=== PATIENT | female | born 1935 | race Caucasian/White ===

== ENCOUNTER 2016-05-08 11:26 | Outpatient (RCR) | payer MEDICARE, OTHER ==
[~2016-05-08 11:26] MED LIST: ALBU17AE23 IH; ATOR40TA PO; ATR20T PO; ATRV10T PO; CEPH500C PO; CHOL5000 PO; CLN.1TRX PO; CLON0.1T14 PO; CLON0.5T3 PO; CODE-54 PO; DIPH25TA82 PO; EPIN0.3P3; EPIN0.3P3 IM; LAMO100T65 PO; LAMO150T PO; LORA10TA7 PO; LORA1TAB PO; METH4TAB PO; METO-272 PO; NFNEB10T PO; POLY15DR14 OU; PRD20T PO; SULF1TAB38 PO; [UNRECOGNIZED DRUG - CODE] TD
== END 2016-05-20 13:27 | disposition home or self-care (01) ==
LOC: CR 11:26
PROVIDERS: ATTEND Nuclear Medicine Nuclear Cardiology
DX: Z48.812 Encounter for surgical aftercare following surgery on the circulatory system (principal); Z95.5 Presence of coronary angioplasty implant and graft
CPT/HCPCS: 93798

== ENCOUNTER 2018-11-04 20:34 | Emergency (ER) | payer MEDICARE, OTHER ==
[~2018-11-04] VITALS: Ht 157.5 cm; Wt 64.4 kg
[~2018-11-04 20:34] MED LIST changes: +CLON0.5T13 PO; -CLON0.5T3 PO; -LAMO150T PO; +LAMO150T2 PO; -METO-272 PO; +METO-370 PO; +ONDANSETRON 4 MG/2 ML (SDV) Z0FRAN ONE
[2018-11-04] MEDS ORDERED: EPINEPHrine 0.1 MG/ML 10 ML (HOSPIRA) SYR IJ ONE (20:36)
[2018-11-04 20:43] LABS: BASOPHILS % (AUTO) 0 % (0-10); EOSINOPHILS # (AUTO) 0.2 10^3/uL (0.0-0.3); EOSINOPHILS % (AUTO) 2 % (0-10); HEMATOCRIT 35 % (35-52); HEMOGLOBIN 11.2 G/DL (11.5-16.0); LYMPHOCYTES # (AUTO) 3.4 X 10^3 (1.0-4.0); LYMPHOCYTES % (AUTO) 40 % (12-44); MEAN CORPUSCULAR HEMOGLOBIN 34 PG (25-34); MEAN CORPUSCULAR HGB CONC 32 G/DL (32-36); MEAN CORPUSCULAR VOLUME 105 FL (80-99); MONOCYTES # (AUTO) 0.8 X 10^3 (0.0-1.0); MONOCYTES % (AUTO) 9 % (0-12); NEUTROPHILS # (AUTO) 4.2 X 10^3 (1.8-7.8); NEUTROPHILS % (AUTO) 49 % (42-75); PLATELET COUNT 275 10^3/uL (130-400); RED CELL DISTRIBUTION WIDTH 13.1 % (10.0-14.5); WHITE BLOOD COUNT 8.7 10^3/uL (4.3-11.0)
[2018-11-04] MEDS ORDERED: ASPIRIN 81 MG CHEW (CHILDREN'S ASA) PO ONE (20:45)
[2018-11-04 20:53] VITALS: BP 0/0
[2018-11-04 20:56] LABS: INR 1.1 (0.8-1.4); PROTHROMBIN TIME PATIENT 14.4 SEC (12.2-14.7)
--- NOTE | 2018-11-04 21:00 | NUR ---
pt's family in to see pt. no questions at this time.
[2018-11-04 21:03] LABS: ALANINE AMINOTRANSFERASE 16 U/L (0-55); ALBUMIN 3.7 GM/DL (3.2-4.5); ALKALINE PHOSPHATASE 78 U/L (40-136); BILIRUBIN,TOTAL 0.7 MG/DL (0.1-1.0); BUN/CREATININE RATIO 10; CALCIUM 8.9 MG/DL (8.5-10.1); CARBON DIOXIDE 20 MMOL/L (21-32); CHLORIDE 106 MMOL/L (98-107); CREATININE SERUM 1.05 MG/DL (0.60-1.30); GFR ESTIMATED 50; GLUCOSE 167 MG/DL (70-105); MAGNESIUM 2.3 MG/DL (1.8-2.4); POTASSIUM 4.5 MMOL/L (3.6-5.0); SODIUM 139 MMOL/L (135-145)
--- NOTE | 2018-11-04 21:03 | NUR ---
pt's family left without signing release of body form.
--- NOTE | 2018-11-04 21:06 | ED Chest Pain ---
General Chief Complaint: Chest Pain Stated Complaint: STEMI Nursing Triage Note: BROUGHT IN BY [facility] FOR CHEST PAIN/STEMI Nursing Sepsis Screen: No Definite Risk Source: patient, EMS Exam Limitations: clinical condition History of Present Illness Date Seen by Provider: Nov 04, 2018 Time Seen by Provider: 20:36 Initial Comments Patient presented to ER by EMS from home which he complained that she had a single episode stop breathing for about 5 minutes witnessed by family was sweaty cold pale and in complaining of severe chest pain in the middle of her chest. EMS arrives that she had some ST changes in her inferior leads and brought her in hot. She was given a couple bags of fluids through 2 antecubital IVs because her blood pressure was undetectable. Faint thready femoral pulse. Patient was ab le to answer with her name but not able to give any meaningful history other than her chest hurt. She had not received aspirin because she was complaining of nausea and vomiting as well as no pain meds because of her low blood pressure. Allergies and Home Medications Allergies Uncoded Allergies: Hazelnuts (Allergy, Severe, 08/28/08) Home Medications Atorvastatin Calcium 40 Mg Tablet, 40 MG PO DAILY, (Reported) Cholecalciferol (Vitamin D3) 5,000 Unit Capsule, 5,000 UNIT PO 1200, (Reported) Clonazepam 0.5 Mg Tablet, 0.25 MG PO DAILY PRN for ANXIETY, (Reported) TAKES 1/2 (0.5MG) TABLET Clonidine HCl 0.1 Mg Tablet, 0.1 MG PO BID PRN for HIGH BLOOD PRESSURE, (Reported) Diphenhydramine Hcl 25 Mg Tablet, 25 MG PO HS PRN for ALLERGIES/SLEEP, (Reported) Epinephrine 0.3 Mg/0.3 Ml Auto.injct, UD PRN for ALLERGIC REACTION, (Reported) Lamotrigine 150 Mg Tablet, 150 MG PO BID, (Reported) Loratadine 10 Mg Tablet, 10 MG PO DAILY, (Reported) Metoprolol Succinate 50 Mg Tab.er.24h, 50 MG PO DAILY, (Reported) Polyvinyl Alcohol/Povidone 15 Ml Drops, 1-2 DROPS OU QID PRN for DRY EYES, (Reported) Patient Home Medication List Home Medication List Reviewed: Yes Review of Systems Review of Systems Constitutional: see HPI (unable to obtain a meaningful review of systems as the patient is nonresponsive.) Past [address] Hx Patient Social History Alcohol Use: Denies Use Recreational Drug Use: No Smoking Status: Unknown if Ever Smoked Recent Foreign Travel: No Contact w/Someone Who Travel: No Recent Infectious Disease Expo: No Recent Hopitalizations: No Immunizations Up To Date Tetanus Booster (TDap): Unknown Date of Pneumonia Vaccine: Mar 10, 2008 Date of Influenza Vaccine: Feb 10, 2013 Seasonal Allergies Seasonal Allergies: Yes Past Medical History Surgeries: Yes Eye Surgery, Hysterectomy, Oophorectomy, Orthopedic, Rectal Respiratory: No Cardiac: Yes (VARICOSE VEIN SURGERY) High Cholesterol, Hypertension 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 0.0oz. 64.761455pm; 26.0 BMI Method:Stated General Appearance: Chronically ill, Severe Distress HEENT: No Moist Mucous Membranes; Pale Conjunctivae (L), Pale Conjunctivae (R) Neck: Full Range of Motion, Normal Inspection Respiratory: Chest Non Tender, Lungs Clear, Normal Breath Sounds, Accessory Muscle Use (mild to moderate) Cardiovascular: Regular Rate, Rhythm, No Edema; No Normal Peripheral Pulses; Other (femoral and carotid pulse palpable, thready no radial or dorsal pedal pulses palpable. Perioral cyanosis, pale and diaphoretic) Gastrointestinal: Non Tender, Soft Extremity: Non Tender, No Pedal Edema, Slow Capillary Refill Neurologic/Psychiatric: Alert, Disoriented (and oriented to self only) Skin: Cyanosis, Damp, Diaphoresis, Mottled (extremities) Critical Care Note Critical Care Start Time: 20:36 Stop Time: 20:53 Total Time (minutes) 17 minutes Date of : Nov 04, 2018 Time of : 20:53 Progress The patient was cool, diaphoretic and cyanotic when she arrived with barely palpable central pulses. We put her in Trendelenburg obtained a blood pressure that was very low with a map around 65. She had 2 good antecubital IV sites that we put on a pressure bag with 2 L of saline. An EKG was obtained showing possible ST elevation in her inferior leads but there is also a bundle-branch blocks. 8 mg Zofran were given. The patient endorsed central sternal pain. The Hose Seamer was already on site and had been summonsed when EMS called and Dr. Nieto showed up shortly afterwards. Respiratory therapy began assisting ventilation with Ambu bag and we put the patient in Trendelenburg. A Cooper catheter was established and we discussed with the granddaughter and son that the patient wishes to be a DO NOT RESUSCITATE. As we brought ultrasound to the bedside to initiate a central line the patient lost pulse and CPR was initiated. Epinephrine was given and one cycle of CPR was done. That's when we ascertained from family that the patient was a DO NOT RESUSCITATE and they agreed to disco ntinue resuscitative efforts. After one cycle of CPR we discontinued efforts and using a Doppler ultrasound as well as stethoscope we could not find a heart rate. The patient was in pulseless electrical rhythm around 50 bpm. Agonal breathing that was not adequately ventilating. There is no pupillary reflex, heart tones, Doppler pulse or carotid pulse palpable so the patient was declared at 2052. Progress/Results/Core Measures Results/Orders Lab Results Laboratory Tests Test 11/04/18 20:37 Range/Units White Blood Count 8.7 4.3-11.0 10^3/uL Red Blood Count 3.32 L 4.35-5.85 10^6/uL Hemoglobin 11.2 L 11.5-16.0 G/DL Hematocrit 35 35-52 % Mean Corpuscular Volume 105 H 80-99 FL Mean Corpuscular Hemoglobin 34 25-34 PG Mean Corpuscular Hemoglobin Concent 32 32-36 G/DL Red Cell Distribution Width 13.1 10.0-14.5 % Platelet Count 275 130-400 10^3/uL Mean Platelet Volume 10.0 7.4-10.4 FL Neutrophils (%) (Auto) 49 42-75 % Lymphocytes (%) (Auto) 40 12-44 % Monocytes (%) (Auto) 9 0-12 % Eosinophils (%) (Auto) 2 0-10 % Basophils (%) (Auto) 0 0-10 % Neutrophils # (Auto) 4.2 1.8-7.8 X 10^3 Lymphocytes # (Auto) 3.4 1.0-4.0 X 10^3 Monocytes # (Auto) 0.8 0.0-1.0 X 10^3 Eosinophils # (Auto) 0.2 0.0-0.3 10^3/uL Basophils # (Auto) 0.0 0.0-0.1 10^3/uL Prothrombin Time 14.4 12.2-14.7 SEC INR Comment 1.1 0.8-1.4 Activated Partial Thromboplast Time 33 24-35 SEC Sodium Level 139 135-145 MMOL/L Potassium Level 4.5 3.6-5.0 MMOL/L Chloride Level 106 98-107 MMOL/L Carbon Dioxide Level 20 L 21-32 MMOL/L Anion Gap 13 5-14 MMOL/L Blood Urea Nitrogen 11 7-18 MG/DL Creatinine 1.05 0.60-1.30 MG/DL Estimat Glomerular Filtration Rate 50 BUN/Creatinine Ratio 10 Glucose Level 167 H 70-105 MG/DL Calcium Level 8.9 8.5-10.1 MG/DL Corrected Calcium 9.1 8.5-10.1 MG/DL Magnesium Level 2.3 1.8-2.4 MG/DL Total Bilirubin 0.7 0.1-1.0 MG/DL Aspartate Amino Transf (AST/SGOT) 15 5-34 U/L Alanine Aminotransferase (ALT/SGPT) 16 0-55 U/L Alkaline Phosphatase 78 40-136 U/L Myoglobin 40.4 10.0-92.0 NG/ML Troponin I < 0.028 <0.028 NG/ML Total Protein 6.0 L 6.4-8.2 GM/DL Albumin 3.7 3.2-4.5 GM/DL My Orders Orders - SASHA VERMA Ondansetron Injection (Zofran Injectio (11/04/18 20:33) Medications Given in ED Current Medications Medications Dose Ordered Sig/Binu Route Start Time Stop Time Status Last Admin Dose Admin Ondansetron HCl 4 mg STK-MED ONCE .ROUTE 11/04/18 20:33 11/04/18 20:38 DC 11/04/18 20:39 8 MG Vital Signs/I&O 11/04/18 11/04/18 11/04/18 11/04/18 20:36 20:36 20:36 20:53 Temp 97.0 Pulse 76 0 Resp 33 0 B/P (MAP) 79/68 (72) 0/0 (0) Pulse Ox 97 97 0 O2 Delivery Non Rebreather Non Rebreather Non Rebreather O2 Flow Rate 15.00 15.0 15.0 Blood Pressure Mean: 72 Progress Progress Note : Time: 22:26 Departure Impression Primary Impression: Acute myocardial infarction Qualified Codes: I21.3 - ST elevation (STEMI) myocardial infarction of unspecified site Additional Impression: due to cardiac arrest Disposition: 20 Condition: Departure-Patient Inst. Decision time for Depature: 20:53 Referrals: KAROL KIRK DO (PCP/Family) Primary Care Physician Copy Copies To 1: KAROL KIRK TITUS J Nov 04, 2018 21:06
--- NOTE | 2018-11-04 21:14 | NUR ---
[facility] contacted.
--- NOTE | 2018-11-04 21:20 | NUR ---
[facility] contacted. pt not a canidate for donation. reference number [id number]
--- OUTSIDE RECORDS SUMMARY | 2018-11-05 06:41 | XMS REPORT | Encounter Summary ---
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 Manager Name Role Phone Mack Daniel MD PCP Reason for Visit * Reason Comments Coronary Artery Disease Hypertension Encounter Details Date Type Department Care Team Description 08/21/2018 Office Visit [facility] Elaina Easley FNP Coronary artery disease Cardiovascular [address] involving [place] [facility] [address] artery of [place] heart [address] [place] [address] without angina pectoris [address] (Primary Dx); [place] [address] Essential hypertension; [phone] Mixed hyperlipidemia Social History Tobacco Use Types Packs/Day Years Used Date Never Smoker Smokeless Tobacco: Never Used Alcohol Use Drinks/Week oz/Week Comments Yes 1 Cans of 0.6 beer Sex Assigned at Date Recorded Not on file as of this encounter Last Filed Vital Signs Vital Sign Reading Time Taken Blood Pressure 140/78 08/21/2018 12:45 PM CDT Pulse 64 08/21/2018 12:45 PM CDT Temperature - - Respiratory Rate - - Oxygen Saturation - - Inhaled Oxygen - - Concentration Weight 68.1 kg (150 lb 3.2 oz) 08/21/2018 12:45 PM CDT Height 157.5 cm (5' 2") 08/21/2018 12:45 PM CDT Body Mass Index 27.47 08/21/2018 12:45 PM CDT in this encounter Instructions * Patient Instructions - Elaina Easley FNP - 08/21/2018 1:00 PM CDT Continue present medications. Please ensure that your medications at home match the medication list provided t o you today, with regard to the strength of the medication and the correct dosin g. Sometimes bottles of medication do not have the most up to date dosing instr uctions on them because of changes made by your provider. Please follow the ins tructions on today's medication list for your cardiac medications. Please contact the nurse line at the office with any concerns. [phone]. T he nurses will assist you and if needed, relay messages to your provider about y our concerns. in this encounter Progress Notes * Elaina Easley FNP - 08/21/2018 1:00 PM CDT Formatting of this note may be different from the original. [facility] Appointment Date: 08/21/2018 Mack Daniel MD [address] [facility] [id number] RE: Antonette Lilly : 1935 Visit provider: JOANNE Sanchez Dear Mack Daniel MD: I had the pleasure of seeing Antonette Lilly in the office today. She is a(n) 83 -year-old female and presents with the following chief complaint(s): Coronary a rtery disease and hypertension. HPI: Ms. Lilly comes to the office in 6-month cardiovascular follow-up. She has a history of an anterior non-STEMI in February 2016. A high-grade mid LAD lesion w as treated with a drug-eluting stent. She has no other significant disease. He r ejection fraction on an echo in June 2017 was 65%. In the past, her blood pressure was well modified on Bystolic and amlodipine. S he changed prescription drug plans and Bystolic was no longer covered. You go sitioned her to carvedilol and discontinued amlodipine. Her blood pressure has been well modified on that regimen. She tells me that while her blood pressure is a bit up today, the systolic reading is normally under 130. She denies chest pain, shortness of breath on exertion, dizziness, lightheadedness, palpitations, PND, or orthopnea. She remains on aspirin and a statin. 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) PARTIAL EPILEPSY WITH IMPAIRMENT OF CONSCIOUSNESS Coronary artery disease involving [place] coronary artery of [place] heart COR ONARY ARTERIOSCLEROSIS IN [place] ART[place] Essential hypertension ESSENTIAL HYPERTENSION Mixed hyperlipidemia MIXED HYPERLIPIDEMIA History of CVA (cerebrovascular accident) HISTORY OF CEREBROVASCULAR ACCIDEN T Carotid artery disease ([facility]) DISORDER OF CAROTID ARTERY S/P coronary artery stent placement HISTORY OF PLACEMENT OF STENT FOR MOYA RY ARTERY DISEASE History of non-ST elevation myocardial infarction (NSTEMI) HISTORY OF NON-ST -SEGMENT ELEVATION MYOCARDIAL INFARCTION Seizures ([facility]) SEIZURE Leg weakness, bilateral PARAPARESIS Weakness of both lower extremities PARAPARESIS Past Medical History: Diagnosis Date Anaphylaxis Hazelnuts Anxiety BPPV (benign paroxysmal positional vertigo) 2011 Carotid artery disease ([facility]) Cataract Coronary artery disease involving [place] coronary artery of [place] heart CVA (cerebral vascular accident) ([facility]) 11/2013 DDD (degenerative disc disease), lumbar Depression Essential hypertension Heart murmur Hernia Leg weakness, bilateral 01/21/2018 Lumbar spondylosis Mixed hyperlipidemia NSTEMI (non-ST elevated myocardial infarction) ([facility]) 02/26/2016 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 Normal LM, 95% mid LAD, norm al LCX and dominant RCA. EYE SURGERY HERNIA REPAIR LAPAROSCOPY, DIAGNOSTIC 11/14/2010 Lysis of adhesions, BSO, pelvic washings TUBAL LIGATION 1979 VAGINAL HYSTERECTOMY 1982 VARICOSE VEIN SURGERY Final Medications: Current Outpatient Prescriptions Medication Sig Dispense Refill aspirin 81 MG EC tablet Take 1 tablet (81 mg total) by mouth daily. 30 table t 12 atorvastatin (LIPITOR) 80 MG tablet Take 1 tablet (80 mg total) by mouth jacob ly. 90 tablet 3 carvedilol (COREG) 25 MG tablet Take 25 mg by mouth 2 (two) times a day. clonazePAM (KLONOPIN) 0.5 MG tablet as needed. cyanocobalamin (VITAMIN B-12) 500 MCG tablet Take 500 mcg by mouth daily. At noon daily lamoTRIgine (LAMICTAL) 150 MG tablet Take 1 tablet (150 mg total) by mouth 2 (two) times a day. 180 tablet 3 loratadine (CLARITIN) 10 mg tablet Take 10 mg by mouth daily. nitroglycerin (NITROSTAT) 0.4 MG SL tablet Dissolve 1 tablet (0.4 mg total) under the tongue every 5 (five) minutes as needed for chest pain. May repeat for a total of 3 doses. 25 tablet 12 No current facility-administered medications for this visit. Allergies Allergen Reactions Hazelnut Anaphylaxis Wasp Venom Anaphylaxis Family History Problem Relation Age of Onset Coronary artery disease Brother Coronary artery disease Brother Heart failure Father CHF Dementia Mother Coronary artery disease Mother Alzheimer's disease Mother Coronary artery disease Sister Diabetes Sister 63 Obesity Sister Social History: Social History Substance Use Topics Smoking status: Never Smoker Smokeless tobacco: Never Used Alcohol use 0.6 oz/week 1 can of beer per week Review of Systems Constitution: Positive for malaise/fatigue. Negative for fever and night sweats. HENT: Negative for nosebleeds. Cardiovascular: Negative for chest pain, claudication, cyanosis, dyspnea on exer tion, irregular heartbeat, leg swelling, near-syncope, orthopnea, palpitations, paroxysmal nocturnal dyspnea and syncope. Respiratory: Negative for cough, hemoptysis, shortness of breath, sleep disturba nces due to breathing, snoring and wheezing. Endocrine: Negative for cold intolerance and polydipsia. Skin: Negative for rash. Musculoskeletal: Negative for joint pain and myalgias. Gastrointestinal: Negative for dysphagia, hematochezia, nausea and vomiting. Genitourinary: Negative for hematuria. Neurological: Positive for disturbances in coordination and excessive daytime sl eepiness. Negative for brief paralysis, dizziness, focal weakness, light-headedn ess, loss of balance and numbness. Psychiatric/Behavioral: Negative for depression. All other systems reviewed and are negative. Vital Signs 08/21/18 1245 BP: (!) 140/78 Pulse: 64 Weight: 68.1 kg (150 lb 3.2 oz) Height: 1.575 m (5' 2") BMI: Body mass index is 27.47 kg/m. Physical Exam Constitutional: She is oriented to person, place, and time. She appears well-dev eloped and well-nourished. Overweight by BMI. HENT: Head: Normocephalic. Eyes: Conjunctivae are normal. Neck: Neck supple. No JVD present. Cardiovascular: Normal rate, regular rhythm, S1 normal, S2 normal, normal heart sounds, intact distal pulses and normal pulses. No murmur heard. Pulses: Dorsalis pedis pulses are 2+ on the right side, and 2+ on the left side. No peripheral edema. Pulmonary/Chest: Effort normal and breath sounds normal. Abdominal: Soft. There is no tenderness. Musculoskeletal: Normal range of motion. She exhibits no edema. Neurological: She is alert and oriented to person, place, and time. Skin: Skin is warm, dry and intact. No rash noted. + LE varicosities. Psychiatric: She has a normal mood and affect. Her speech is normal and behavior is normal. Judgment and thought content normal. Cognition and memory are normal. Nursing note and vitals reviewed. Cholesterol (no units) Date Value 09/18/2017 155 07/21/2017 177 01/23/2017 197 HDL Cholesterol (mg/dL) Date Value 09/18/2017 44 07/21/2017 57 01/23/2017 50 Triglycerides (mg/dL) Date Value 09/18/2017 116 07/21/2017 72 01/23/2017 102 LDL Cholesterol Date/Time Value Ref Range Status 09/18/2017 88 60 - 130 mg/dL Final 07/21/2017 106 130 mg/dL Final 01/23/2017 127 60 - 130 mg/dL Final Encounter Diagnoses Name Primary? Coronary artery disease involving [place] coronary artery of [place] heart wit hout angina pectoris Yes Essential hypertension Mixed hyperlipidemia Impression and Plan: 1. Coronary artery disease. She has no anginal symptoms. She will continue me dical therapy. She is status post drug-eluting stent to the mid LAD in the sett ing of an anterior non-STEMI in February 2016. LVEF is normal. 2. Hypertension. Although her blood pressure is elevated today, she tells me n ormally it is in acceptable range with a systolic no higher than 130. She will continue carvedilol as monotherapy. 3. Mixed hyperlipidemia. She continues her statin. She will be due for lipids later this spring. Her last LDL was 88. She is on high-intensity atorvastatin. Ms. Lilly is stable in terms of her cardiovascular status. No changes were ma de today. Dr. Deluca will see her in 6 months. Treatment goals, progress, and next steps, as above, were discussed and mutually agreed upon with the patient/family. Thank you for allowing me to participate in Antonette Lilly's care. If I can be of any further assistance, please do not hesitate to contact me. Sincerely, JOANNE Sanchez /dalila in this encounter Plan of Treatment Date Type Specialty Care Team Description 11/13/2018 Office Visit Neurology Aster Young APRN [address] [address] 02/17/2019 Office Visit Neurology Curry Cotto MD [address] [id number] as of this encounter Visit Diagnoses Diagnosis Coronary artery disease involving [place] coronary artery of [place] heart without angina pectoris - Primary Essential hypertension Unspecified essential hypertension Mixed hyperlipidemia
--- OUTSIDE RECORDS SUMMARY | 2018-11-05 06:41 | XMS REPORT | Clinical Summary ---
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 Disp. Refills Start End Date Status Date loratadine (CLARITIN) 10 Take 10 mg by mouth Active mg tablet daily. cyanocobalamin (VITAMIN Take 500 mcg by mouth Active B-12) 500 MCG tablet daily. At noon daily aspirin 81 MG EC Take 1 tablet (81 mg 30 tablet 12 02/28/20 Active tabletIndications: total) by mouth daily. 16 Myocardial Reinfarction Prevention, blood clot prevention following percutaneous coronary intervention nitroglycerin (NITROSTAT) Dissolve 1 tablet (0.4 mg 25 tablet 12 02/28/20 Active 0.4 MG SL total) under the tongue 16 tabletIndications: Angina every 5 (five) minutes as needed for chest pain. May repeat for a total of 3 doses. clonazePAM (KLONOPIN) 0.5 as needed. 11/26/19 Active MG tablet 17 atorvastatin (LIPITOR) 80 Take 1 tablet (80 mg 90 tablet 3 07/26/19 Active MG tablet total) by mouth daily. 18 lamoTRIgine (LAMICTAL) Take 1 tablet (150 mg 180 tablet 3 01/22/20 01/22/20 Active 150 MG tabletIndications: total) by mouth 2 (two) 18 19 Simple Partial Seizures times a day. carvedilol (COREG) 25 MG Take 25 mg by mouth 2 08/21/19 Active tablet (two) times a day. 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) 01/24/2016 Seizures (HCC) 05/19/2013 Overview: Right leg/focal motor seizures Essential hypertension Mixed hyperlipidemia History of CVA (cerebrovascular accident) Overview: small lacunar infarct in the left centrum semi-ovale identified on MRI 11/2013 Carotid artery disease (HCC) Resolved Problems Problem Noted Date Resolved Date Other and unspecified complications of medical care, not elsewhere 08/31/2014 03/17/2016 classified Leg numbness 11/18/2013 03/17/2016 Encounters Date Type Specialty Care Team Description 08/21/2018 Office Visit Cardiology Elaina Easley FNP Coronary artery disease involving seneca-cayuga coronary artery of seneca[place] heart without angina pectoris (Primary Dx); Essential hypertension; Mixed hyperlipidemia 08/19/2018 Abstract Cardiology Ni Medina, RN 08/17/2018 Documentation Cardiology Elaina Easley FNP from Last 3 Months Immunizations Name Dates Previously Given Next Due Influenza TIV (IM) 02/28/2016 Family History Medical History Relation Name Comments Coronary artery disease Brother Coronary artery disease Brother Heart failure Father CHF Alzheimer's disease Mother Coronary artery disease Mother Dementia Mother Coronary artery disease Sister Diabetes Sister Obesity Sister Relation Name Status Comments Brother Cause of was CAD at age 48. (Age 48) Brother Cause of was CAD at age 50. (Age 50) Father Cause of was CHF at age 70. (Age 70) Mother Cause of was heart problems, alzheimers at (Age 80) age 80. Sister Cause of was blocked arteries at age 50. (Age 50) Sister Cause of was unknown at age 63. (Age 63) Sister Social History Tobacco Use Types Packs/Day Years Used Date Never Smoker Smokeless Tobacco: Never Used Alcohol Use Drinks/Week oz/Week Comments Yes 1 Cans of 0.6 beer Sex Assigned at Date Recorded Not on file Last Filed Vital Signs Vital Sign Reading Time Taken Blood Pressure 140/78 08/21/2018 12:45 PM CDT Pulse 64 08/21/2018 12:45 PM CDT Temperature 36.8 C (98.2 F) 02/28/2016 4:05 PM CDT Respiratory Rate 19 02/28/2016 4:05 PM CDT Oxygen Saturation 96% 02/28/2016 4:05 PM CDT Inhaled Oxygen - - Concentration Weight 68.1 kg (150 lb 3.2 oz) 08/21/2018 12:45 PM CDT Height 157.5 cm (5' 2") 08/21/2018 12:45 PM CDT Body Mass Index 27.47 08/21/2018 12:45 PM CDT Plan of Treatment Date Type Specialty Care Team Description 11/13/2018 Office Visit Neurology Aster Young, [employer] [address] [address] [phone] 02/17/2019 Office Visit Neurology Curry Cotto MD [address] [address] [phone] Health Maintenance Due Date Last Done Comments Medicare Annual Wellness 1935 Td # 1935 Zoster Vaccine# (1 of 2) 07/25/1985 Depression Screening 07/25/2000 PHQ-9 # Osteoporosis Screening 07/25/2000 Pneumococcal Immunization 07/25/2000 65+ (1 of 2 - PCV13) Fall Risk Assessment # 02/27/2017 02/28/2016 Influenza Vaccine Completed 04/22/2018, 02/28/2016, 03/06/2005, Additional history exists Results Not on filefrom Last 3 Months
--- OUTSIDE RECORDS SUMMARY | 2018-11-05 06:42 | XMS REPORT | CCD ---
Author Author DARWIN BUSBY Organization Unknown Address [address] [facility] [address] [place], [place] [id number] Care Team Providers Care Liquid Compounder Name Role Phone HANDS EREVAN MD Attphys [facility], [place] [place] Prisurg Vital Signs Unknown or Not Available. Allergies Unknown or Not Available. Procedures Unknown or Not Available. History of Immunizations Unknown or Not Available. Problems Unknown or Not Available. Results Unknown or Not Available. Active Medications Unknown or Not Available. Medications Administered During Visit Unknown or Not Available. Encounters Encounter Diagnosis Diagnosis Code Start Date Other allergy, initial encounter [id number] 05/05/2015 Social History Smoking Status Code Start Date End Date Never smoker [id number] Patient Decision Aids Unknown or Not Available. Discharge Instructions You were admitted to [facility] on 05/05/2015 with a principal diagnosis of Other allergy, initial encounter. You were discharged from [facility] on 05/05/2015. Should you have any questions prior to discharge, please contact a member of your healthcare team. If you have left the hospital and have any questions, please contact your primary care physician. Chief Complaint and Reason For Visit Chief Complaint Date of Onset EYE PROBLEM Function Status Unknown or Not Available. Plan of Care Unknown or Not Available. Referral/Transition of Care Unknown or Not Available.
--- OUTSIDE RECORDS SUMMARY | 2018-11-05 06:42 | XMS REPORT ---
Discharge Summary 2.1 Created on: AURELIA TIM : 1935 Sex: Female Author Author ALLISON BRADEN Unknown Address [address] [facility] [address] [place], [place] [id number] Care Team Providers Care Hearth Feeder Name Role Phone MICHAEL Stevens DO Attending DANIEL VANN MD [facility] Functional Status No Data Found Immunization Immunization Date Status Additional Notes Code Code System Td (adult), 2 Lf tetanus toxoid, preservative free, adsorbed 08/12/2011 Completed 09 CVX influenza, split (incl. purified surface antigen) 03/16/2002 Completed 15 CVX influenza, split (incl. purified surface antigen) 02/24/2003 Completed 15 CVX influenza, split (incl. purified surface antigen) 03/01/2004 Completed 15 CVX influenza, split (incl. purified surface antigen) 03/06/2005 Completed 15 CVX Mental Status No Data Found Results UA ROUTINE C&S IF IND - Collect Date/Time: 04/04/2017 01:25 [place] ID: [id number] [address] [facility] [address], [place], [id number] [facility] ANESTHESIOLOGIST AND CRITICAL CARE [facility] HEALTH ID: [id number] [address] [facility] [address], [place], [id number] LOINC: Test Value Unit Reference Range Code Code System COLOR YELLOW NL: YELLOW APPEARANCE CLEAR NL: CLEAR SPEC GRAV <=1.005 NL: 1.002 - 1.022 pH 7.0 NL: 5 - 9 PROTEIN NEGATIVE NL: NEGATIVE mg/dl GLUCOSE NEGATIVE NL: NEGATIVE mg/dl KETONE NEGATIVE NL: NEGATIVE mg/dl BILIRUBIN NEGATIVE NL: NEGATIVE BLOOD NEGATIVE NL: NEGATIVE NITRITE NEGATIVE NL: NEGATIVE LEUK SCREEN SMALL NL: NEGATIVE MICRO INDICATED? SEE BELOW WBC/HPF 0-5 NL: NEGATIVE RBC/HPF RARE NL: NEGATIVE CASTS/LPF NEGATIVE NL: NEGATIVE CRYSTALS TRACE AMORPH NL: NEGATIVE MUCOUS THRDS NEGATIVE NL: NEGATIVE BACTERIA FEW NL: NEGATIVE EPITH CELLS FEW SQUAMOUS NL: NEGATIVE TRICHOMONAS NEGATIVE NL: NEGATIVE YEAST NEGATIVE NL: NEGATIVE CULT SET UP? YES TSH - Collect Date/Time: 04/04/2017 00:35 [facility] ID: [id number] [address] [facility] [address], [place], [place], [id number] [facility] ID: [id number] [address] [facility] [address], [place], [place], [id number] LOINC: Test Value Unit Reference Range Code Code System TSH 3.72 mIU/L L=0.35 H=4.94 21621-7 LOINC BNP - Collect Date/Time: 04/04/2017 00:35 [facility] ID: [id number] [address] [facility] [address], [place], [place], [id number] [facility] ID: [id number] [address] [facility] [address], [place], [place], [id number] LOINC: Test Value Unit Reference Range Code Code System BNP 170 PG/ML L=0 H=100 38044-7 LOINC PT/PTT - Collect Date/Time: 04/04/2017 00:35 [facility] ID: [id number] [address] [facility] [address], [place], [place], [id number] [facility] ID: [id number] [address] [facility] [address], [place], [place], [phone] LOINC: Test Value Unit Reference Range Code Code System PROTIME 10.7 SEC L=9.9 H=11.9 5964-2 LOINC INR 1.0 01216-3 LOINC PTT 28.5 SEC L=22.2 H=37.2 3173-2 LOINC TROPONIN-I ADV - Collect Date/Time: 04/04/2017 00:35 [facility] ID: [id number] [address] [facility] [address] [place], [place], [phone] [facility] ID: [id number] [address] [facility] [address], [place], [id number] LOINC: Test Value Unit Reference Range Code Code System TROPONIN-I AD < 0.04 ng/mL L=0.04 H=0.40 27833-6 [facility] COMPRE[facility]ENSIVE METABOLIC PANEL - Collect Date/Time: 04/04/2017 00:35 [facility] [employer]) ID: [id number] [address] [facility] [address], [place], [place], [id number] [employer] [employer] [facility] ID: [id number] [address] [facility] [address], [place], [id number] LOINC: Test Value Unit Reference Range Code Code System GLUCOSE 119 MG/DL L=70 H=100 2345-7 LOINC SODIUM 141 MEQ/L L=135 H=148 2951-2 LOINC POTASSIUM 3.8 MEQ/L L=3.5 H=5.3 2823-3 LOINC CHLORIDE 104 MEQ/L L=96 H=110 2075-0 LOINC CO2 28 MEQ/L L=22 H=29 2028-9 LOINC BUN 16 MG/DL L=8 H=22 3094-0 LOINC CREATININE 0.9 MG/DL L=0.6 H=1.6 2160-0 LOINC SGOT/AST 20 IU/L L=10 H=40 1920-8 LOINC SGPT/ALT 17 IU/L L=8 H=54 1742-6 LOINC ALK PHOS 88 IU/L L=35 H=115 6768-6 LOINC TOTAL PROTEIN 6.6 G/DL L=5.5 H=8.5 2885-2 LOINC ALBUMIN 3.8 G/DL L=3.1 H=5.4 1751-7 LOINC TOTAL BILI 0.5 MG/DL L=0.0 H=1.5 1975-2 LOINC CALCIUM 9.0 MG/DL L=8.2 H=10.6 01003-7 LOINC AGE 81 yrs GFR NonAA 60 GFR AA 73 eGFR 60 mL/min/1.7 eGFR AA* >60 CBC W/ AUTO DIFF (RFLX MAN DIFF IF IND) - Collect Date/Time: 04/04/2017 00:35 [place] [employer] ID: [id number] [address], [place], [place], [id number] [facility] ANESTHESIOLOGIST AND CRITICAL CARE [facility] ID: [id number] [address], [place], [place], [id number] LOINC: Test Value Unit Reference Range Code Code System WBC 9.2 TH/CMM L=4.5 H=10.8 89006-5 LOINC RBC 3.85 ML/CMM L=4.20 H=5.40 789-8 LOINC HGB 12.8 G/DL L=12.0 H=16.0 718-7 LOINC HCT 39.2 % L=37.0 H=47.0 4544-3 LOINC MCV 102 FL L=81 H=99 MCH 33.2 PG L=27.0 H=33.0 MCHC 32.7 G/DL L=31.0 H=36.0 RDW SD 45 FL L=36 H=50 RDW CV 12.1 % L=0.0 H=14.8 MPV 9.5 FL L=9.3 H=12.5 PLT 307 TH/CMM L=130 H=440 777-3 LOINC NRBC# 0.00 TH/CMM L=0.00 H=0.00 NRBC% 0.0 /100WBC L=0.0 H=2.0 %NEUT 70.1 % %LYMP 18.8 % %MONO 8.2 % %EOS 1.5 % %BASO 0.7 % #NEUT 6.42 TH/CMM L=2.10 H=8.20 #LYMP 1.72 TH/CMM L=0.90 H=5.20 #MONO 0.75 TH/CMM L=0.16 H=1.00 #EOS 0.14 TH/CMM L=0.00 H=0.80 #BASO 0.06 TH/CMM L=0.00 H=0.20 MANUAL DIFF NOT IND D DIMER QUANT - Collect Date/Time: 04/04/2017 00:35 [facility] ID: [id number] [address], [place], [place], [id number] [facility] ANESTHESIOLOGIST AND CRITICAL CARE [facility] ID: [id number] [address], [place], [place], [id number] LOINC: Test Value Unit Reference Range Code Code System D-DIMER QUANT 0.57 MG/L FEU L=0.00 H=0.50 91065-2 LOINC CX CHEST 1 VIEW - Completed: 04/04/2017 00:49 LOINC: EXAMINATION:CX CHEST 1 VIEWREASON FOR EXAM:Central chest Pain and tightness COMPARISON:None.FINDINGS:The cardiac silhouette is slightly enlarged.Calcified aortic atherosclerotic plaque.No consolidation, pleural effusion, or sizable pneumothorax.IMPRESSION:Slightly enlarged cardiac silhouette.Reviewed and Electronically Signed by: Marianne Sanford Date/Time: 04/04/2017 7:18 AMJob ID#: [id number] Social History Type Status Start Date End Date Code Code System Smoking History Never smoker (Never Smoked) [id number] SNOMED-CT Vital Signs No Data Found Assessment No Data Found Hospital Discharge Instructions Should you have any questions prior to discharge, please contact a member of your healthcare team. If you have left the hospital and have any questions, please contact your primary care physician. Reason For Referral No Data Found Hospital Course You were admitted to [facility] on 04/03/2017 23:42 with a principal diagnosis of Other chest pain You were discharged from [facility] on 04/04/2017 01:52 Medications No Data Found Procedures No Data Found Implants No Data Found Problems No Data Found Allergies No Data Found Plan of Treatment No Data Found Encounters No Data Found Goals No Data Found Discharge Medications No Data Found Discharge Diagnosis Discharge Diagnosis Diagnosis Code Start Date Other chest pain [id number] 04/03/2017 Health Concerns Section No Data Found
--- OUTSIDE RECORDS SUMMARY | 2018-11-05 06:42 | XMS REPORT | Encounter Summary ---
Author Author [facility] Address Unknown Phone Unavailable Care Team Providers Care Public Information Relations Manager Name Role Phone Mack Daniel MD PCP Encounter Details Date Type Department Care Team Description 08/17/2018 Documentation [facility] Elaina Easley FNP Cardiovascular [address] [facility] [address] [address] [facility] [place] [address] [address] [place] [address] [phone] Social History Tobacco Use Types Packs/Day Years Used Date Never Smoker Smokeless Tobacco: Never Used Alcohol Use Drinks/Week oz/Week Comments Yes 1 Cans of 0.6 beer Sex Assigned at Date Recorded Not on file as of this encounter Plan of Treatment Date Type Specialty Care Team Description 11/13/2018 Office Visit Neurology Aster Young APRN [address] [address] [phone] 02/17/2019 Office Visit Neurology Curry Cotto MD [address] [facility] [address] [place] [address] [phone] as of this encounter Visit Diagnoses Not on filein this encounter
--- OUTSIDE RECORDS SUMMARY | 2018-11-05 06:42 | XMS REPORT | Encounter Summary ---
Author Author [facility] Address Unknown Phone Unavailable Care Team Providers Care Ruby On Rails Software Developer Name Role Phone Mack Daniel MD PCP Encounter Details Date Type Department Care Team Description 08/19/2018 Abstract [facility] Ni Wilburn RNcloth doubling machine operator [facility] [address] [facility] [address] [place] [address] Social History Tobacco Use Types Packs/Day Years Used Date Never Smoker Smokeless Tobacco: Never Used Alcohol Use Drinks/Week oz/Week Comments Yes 1 Cans of 0.6 beer Sex Assigned at Date Recorded Not on file as of this encounter Plan of Treatment Date Type Specialty Care Team Description 11/13/2018 Office Visit Neurology Aster Young APRN [address] [address] [phone] 02/17/2019 Office Visit Neurology Curry Cotto MD [address] [address] [phone] as of this encounter Visit Diagnoses Not on filein this encounter
--- OUTSIDE RECORDS SUMMARY | 2018-11-05 06:44 | XMS REPORT | Continuity of Care Document ---
Author Organization Unknown Address Unknown Allergies Active Description Code Type Severity Reaction Onset Reported/Identified Relationship to Patient Clinical Status Yes OTHER OTHER SEVERE Yes NO KNOWN DRUG ALLERGIES UNKNOWN NO KNOWN DRUG ALLERG Yes NO KNOWN DRUG ALLERGIES UNKNOWN UNKNOWN Yes OTHER SEVERE SEVERE Yes OTHER SEVERE SWOLLEN LIPS Yes Hazelnuts Hazelnuts Severe N/A 08/28/2008 Medications Medication Packaging Start Date Stop Date Route Dosage Sig ENALAPRIL VIAL INJ 1.25 MG/CC (VASOTEC VIAL) MG 11/25/2016 11/25/2016 ONCE&1738 ENALAPRIL VIAL INJ 1.25 MG/CC (VASOTEC VIAL) MG 11/25/2016 11/25/2016 ONCE&1801 LISINOPRIL TAB 10 MG (ZESTRIL) MG 11/25/2016 11/25/2016 ONCE&1830 LORAZEPAM TAB 0.5 MG (ATIVAN) MG 11/25/2016 12/02/2016 PRN Q8H Problems Date Dx Coded Attending Type Code Diagnosis Diagnosed By 09/16/2010 Ot 787.3 FLATUL/ERUCTAT/GAS PAIN 09/16/2010 Ot 789.09 ABDOMINAL PAIN, OTHER SPECIFIED SITE 09/19/2010 Ot 562.10 DIVERTICULOSIS COLON (W/O MENT OF HEMORR 09/19/2010 Ot 625.8 FEM GENITAL SYMPTOMS NEC 09/19/2010 Ot 789.09 ABDOMINAL PAIN, OTHER SPECIFIED SITE 07/24/2012 Ot 401.9 HYPERTENSION NOS 07/24/2012 Ot 780.4 DIZZINESS AND GIDDINESS 2012 Ot 300.00 ANXIETY STATE NOS 2012 Ot 401.9 HYPERTENSION NOS 2012 Ot V58.69 OTH MED,LT,CURRENT USE 12/13/2012 SILVANO PEREZ MD Ot 401.9 HYPERTENSION NOS 12/13/2012 SILVANO PEREZ MD Ot 784.0 HEADACHE 12/20/2012 ANA NGUYEN, SILVANO Preciado Ot 401.9 HYPERTENSION NOS 12/20/2012 ANA NGUYEN, SILVANO Preciado Ot 681.00 CELLULITIS, FINGER NOS 12/20/2012 ANA NGUYEN, SILVANO Preciado Ot V58.69 OT MED,LT,CURRENT USE 03/10/2013 MIRELLA ORTEGA MD Ot 562.10 DIVERTICULOSIS COLON (W/O MENT OF HEMORR 03/10/2013 MIRELLA ORTEGA MD Ot 569.2 RECTAL ANAL STENOSIS 03/10/2013 MIRELLA ORTEGA MD Ot V76.51 SCREEN MAL NEOP-COLON 10/19/2013 CANDY WALKER DO Ot 989.5 TOXIC EFFECT VENOM 10/19/2013 CANDY WALKER DO Ot E905.3 HORNET/WASP/BEE STING 03/22/2014 YARELIS FLANAGAN MD Ot 401.9 HYPERTENSION NOS 03/22/2014 PANCHITO NGUYEN, YARELIS Wilson Ot 780.4 DIZZINESS AND GIDDINESS 03/22/2014 YARELIS FLANAGAN MD Ot V58.69 OT MED,LT,CURRENT USE 05/02/2014 KAROL KIRK DO S Ot 401.9 05/02/2014 KAROL KIRK DO S Ot 426.4 05/02/2014 VAIBHAV KIRK DOLINE S Ot 786.50 01/31/2016 KAROL KIRK DO S Ot 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 02/01/2016 VAIBHAV KIRK DOLINE S Ot 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 02/22/2016 CANDY WALKER DO Ot I10 ESSENTIAL (PRIMARY) HYPERTENSION 02/22/2016 CANDY WALKER DO Ot I44.0 ATRIOVENTRICULAR BLOCK, FIRST DEGREE 02/22/2016 CANDY WALKER DO Ot M79.602 PAIN IN LEFT ARM 02/22/2016 CANDY WALKER DO Ot Z79.899 OTHER HALF-WAY (CURRENT) DRUG THERAPY 02/22/2016 Ot 789.39 ABDOMINAL/PELVIC SWELLING,MASS/LUMP, OTH 02/22/2016 Ot 780.4 DIZZINESS AND GIDDINESS 02/22/2016 Ot 784.0 HEADACHE 02/22/2016 Ot 433.30 MULT BILTRAL ARTERY OCCLUSION WO CEREBRA 02/22/2016 MIRELLA ORTEGA MD Ot V72.84 EXAM PRE-OPERATIVE NOS 02/22/2016 KAROL KIRK DO Ot 368.9 VISUAL DISTURBANCE NOS 02/22/2016 KAROL KIRK DO Ot 785.2 CARDIAC MURMURS NEC 02/22/2016 DORON CHRISTINE POWDER LOADER Ot 401.9 HYPERTENSION NOS 02/22/2016 DORON CHRISTINE POWDER LOADER Ot 433.10 CAROTID ARTERY OCCLUSION W O CEREBRAL IN 02/22/2016 DORON CHRISTINE POWDER LOADER Ot 433.30 MULT BILTRAL ARTERY OCCLUSION WO CEREBRA 02/22/2016 DORON CHRISTINE POWDER LOADER Ot 785.9 CARDIOVAS SYS SYMP NEC 02/22/2016 KAROL KIRK DO Ot 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 02/22/2016 KAROL KIRK DO Ot 434.91 CEREBRAL ART OCCLUSION NOS W CEREBRAL IN 02/22/2016 KAROL KIRK DO S Ot 728.87 MUSCLE WEAKNESS (GENERALIZED) 02/22/2016 KAROL KIRK DO Ot 782.0 SKIN SENSATION DISTURB 02/22/2016 KAROL KIRK DO Ot V15.88 HISTORY OF FALL 02/22/2016 KAROL KIRK DO Ot 401.9 HYPERTENSION NOS 02/22/2016 KAROL KIRK DO Ot 426.4 RT BUNDLE BRANCH BLOCK 02/22/2016 KAROL KIRK DO S Ot 786.50 CHEST PAIN NOS 02/22/2016 KAROL KIRK DO Ot 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 02/22/2016 DORON CHRISTINE POWDER LOADER Ot 401.9 HYPERTENSION NOS 02/22/2016 DORON CHRISTINE POWDER LOADER Ot 433.10 CAROTID ARTERY OCCLUSION W O CEREBRAL IN 02/22/2016 DORON CHRISTINE POWDER LOADER Ot 433.30 MULT BILTRAL ARTERY OCCLUSION WO CEREBRA 02/22/2016 DORON CHRISTINE POWDER LOADER Ot 785.9 CARDIOVAS SYS SYMP NEC 02/22/2016 KATERIN KIRK DOQUELINE S Ot 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 02/22/2016 REAGAN LEZAMA KAROL S Ot 434.91 CEREBRAL ART OCCLUSION NOS W CEREBRAL IN 02/22/2016 REAGAN LEZAMA, KAROL S Ot 728.87 MUSCLE WEAKNESS (GENERALIZED) 02/22/2016 REAGAN LEZAMA KAROL S Ot 782.0 SKIN SENSATION DISTURB 02/22/2016 REAGAN LEZAMA KAROL S Ot V15.88 HISTORY OF FALL 02/22/2016 REAGAN LEZAMA KAROL S Ot 401.9 HYPERTENSION NOS 02/22/2016 REAGAN LEZAMA KAROL S Ot 426.4 RT BUNDLE BRANCH BLOCK 02/22/2016 REAGAN LEZAMA KAROL S Ot 786.50 CHEST PAIN NOS 02/22/2016 REAGAN LEZAMA KAROL S Ot 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 02/22/2016 DORON CHRISTINE POWDER LOADER Ot 401.9 HYPERTENSION NOS 02/22/2016 DORON CHRISTINE POWDER LOADER Ot 433.10 CAROTID ARTERY OCCLUSION W O CEREBRAL IN 02/22/2016 DORON CHRISTINE POWDER LOADER Ot 433.30 MULT BILTRAL ARTERY OCCLUSION WO CEREBRA 02/22/2016 DORON CHRISTINE POWDER LOADER Ot 785.9 CARDIOVAS SYS SYMP NEC 02/22/2016 REAGAN LEZAMA KAROL S Ot 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 02/22/2016 HINASARAH LEZAMA KAROL S Ot 434.91 CEREBRAL ART OCCLUSION NOS W CEREBRAL IN 02/22/2016 REAGAN LEZAMA KAROL S Ot 728.87 MUSCLE WEAKNESS (GENERALIZED) 02/22/2016 REAGAN LEZAMA KAROL S Ot 782.0 SKIN SENSATION DISTURB 02/22/2016 REAGAN LEZAMA KAROL S Ot V15.88 HISTORY OF FALL 02/22/2016 REAGAN LEZAMA KAROL S Ot 401.9 HYPERTENSION NOS 02/22/2016 REAGAN LEZAMA, KAROL S Ot 426.4 RT BUNDLE BRANCH BLOCK 02/22/2016 REAGAN LEZAMA KAROL S Ot 786.50 CHEST PAIN NOS 02/22/2016 REAGAN LEZAMA, KAROL S Ot 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 02/23/[facility] 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 02/23/2016 AARON NASH LEZAMAA Karthik Ot I10 ESSENTIAL (PRIMARY) HYPERTENSION 02/23/2016 AARON CANDY LEZAMA Ot I44.0 ATRIOVENTRICULAR BLOCK, FIRST DEGREE 02/23/2016 AARON CANDY LEZAMA Ot M79.602 PAIN IN LEFT ARM 02/23/2016 AARON CANDY LEZAMA Ot Z79.899 OTHER PUBLIC HEALTH PHYSICIAN (CURRENT) DRUG THERAPY 02/26/2016 ORENDER DO, KAROL S Ot E78.5 HYPERLIPIDEMIA, UNSPECIFIED 02/26/2016 ORENDER DO, KAROL S Ot G40.909 EPILEPSY, UNSP, NOT INTRACTABLE, WITHOUT 02/26/2016 ORENDER DO, KAROL S Ot I10 ESSENTIAL (PRIMARY) HYPERTENSION 02/26/2016 ORENDER DO, KAROL S Ot R07.9 CHEST PAIN, UNSPECIFIED 02/26/2016 ORENDER DO, KAROL S Ot E78.5 HYPERLIPIDEMIA, UNSPECIFIED 02/26/2016 ORENDER DO, KAROL S Ot G40.909 EPILEPSY, UNSP, NOT INTRACTABLE, WITHOUT 02/26/2016 ORENDER DO, KAROL S Ot I10 ESSENTIAL (PRIMARY) HYPERTENSION 02/26/2016 ORENDER DO, KAROL S Ot R07.9 CHEST PAIN, UNSPECIFIED 02/28/2016 AARON DO CANDY K Ot I10 ESSENTIAL (PRIMARY) HYPERTENSION 02/28/2016 AARON DOCANDY Ot I44.0 ATRIOVENTRICULAR BLOCK, FIRST DEGREE 02/28/2016 AARON DOCANDY Ot M79.602 PAIN IN LEFT ARM 02/28/2016 AARON CANDY LEZAMA Ot Z79.899 OTHER PUBLIC HEALTH PHYSICIAN (CURRENT) DRUG THERAPY 02/29/2016 ORENDER DO, KAROL S Ot E78.5 HYPERLIPIDEMIA, UNSPECIFIED 02/29/2016 ORENDER DO, KAROL S Ot G40.909 EPILEPSY, UNSP, NOT INTRACTABLE, WITHOUT 02/29/2016 ORENDER DO, KAROL S Ot I10 ESSENTIAL (PRIMARY) HYPERTENSION 02/29/2016 ORENDER DO, KAROL S Ot R07.9 CHEST PAIN, UNSPECIFIED 04/09/2016 SUNG NGUYEN, SG Stevens Ot Z48.812 ENCNTR FOR SURGICAL AFTCR FOLLOWING SURG 04/09/2016 SG ALMARAZ MD Ot Z95.5 PRESENCE OF CORONARY ANGIOPLASTY IMPLANT 05/16/2016 SG ALMARAZ MD A Ot Z48.812 ENCNTR FOR SURGICAL AFTCR FOLLOWING SURG 05/16/2016 SG ALMARAZ MD Ot Z95.5 PRESENCE OF CORONARY ANGIOPLASTY IMPLANT 05/20/2016 SG ALMARAZ MD A Ot Z48.812 ENCNTR FOR SURGICAL AFTCR FOLLOWING SURG 05/20/2016 SG ALMARAZ MD Ot Z95.5 PRESENCE OF CORONARY ANGIOPLASTY IMPLANT 08/18/2016 PRESTON NOBLE 873.42 OPEN WOUND OF FOREHEAD, UNCOMPLICATED 08/18/2016 PRESTON NOBLE S01.81XA LACERATION W/O FOREIGN BODY OF OTH PART OF HEAD, INIT ENCNTR 11/25/2016 Gael Melo 272.4 OTHER AND UNSPECIFIED HYPERLIPIDEMIA 11/25/2016 Gael Melo 401.0 MALIGNANT ESSENTIAL HYPERTENSION 11/25/2016 Gael Melo 412 OLD MYOCARDIAL INFARCTION 11/25/2016 Gael Melo E78.5 HYPERLIPIDEMIA, UNSPECIFIED 11/25/2016 Gael Melo I10 ESSENTIAL (PRIMARY) HYPERTENSION 11/25/2016 Gael Melo I25.2 OLD MYOCARDIAL INFARCTION 04/03/2017 Mack Daniel V76.12 OTHER SCREENING MAMMOGRAM 04/03/2017 Mack Daniel W Z00.0 ENCOUNTER FOR GENERAL ADULT MEDICAL EXAMINATION 04/03/2017 Mack Daniel Z12.31 ENCOUNTER FOR SCREENING MAMMOGRAM FOR MALIGNANT NEOPLASM OF BREAST 04/03/2017 Mack Daniel V76.12 OTHER SCREENING MAMMOGRAM 04/03/2017 Mack Daniel W Z00.0 ENCOUNTER FOR GENERAL ADULT MEDICAL EXAMINATION 04/03/2017 Mack Daniel W Z12.31 ENCOUNTER FOR SCREENING MAMMOGRAM FOR MALIGNANT NEOPLASM OF BREAST 06/11/2017 Uday Streeter 338.11 ACUTE PAIN DUE TO TRAUMA 06/11/2017 Uday Streeter 379.91 PAIN IN OR AROUND EYE 06/11/2017 Uday Streeter G89.11 ACUTE PAIN DUE TO TRAUMA 06/11/2017 Uday Streeter H57.12 OCULAR PAIN, LEFT EYE 12/05/2017 Michael Gonzaleslas W 369.9 UNSPECIFIED VISUAL LOSS 12/05/2017 BrownMichaelJay W H54.7 UNSPECIFIED VISUAL LOSS 12/05/2017 BrownJay A 368.8 OTHER SPECIFIED VISUAL DISTURBANCES 12/05/2017 Brown, Jay W 369.9 UNSPECIFIED VISUAL LOSS 12/05/2017 Brown, Jay W 780.4 DIZZINESS AND GIDDINESS 12/05/2017 Brown, Jay W 780.79 OTHER MALAISE AND FATIGUE 12/05/2017 Brown, Jay A H53.8 OTHER VISUAL DISTURBANCES 12/05/2017 Brown, Jay W H54.7 UNSPECIFIED VISUAL LOSS 12/05/2017 BrownMichaelJay W R42 DIZZINESS AND GIDDINESS 12/05/2017 BrownMichaelJay W R53.1 WEAKNESS 03/20/2018 PRESTON NOBLE 401.0 MALIGNANT ESSENTIAL HYPERTENSION 03/20/2018 PRESTON NOBLE I10 ESSENTIAL (PRIMARY) HYPERTENSION 03/31/2018 Daniel, Esther-Yuriy W 782.3 EDEMA 03/31/2018 Daniel, Esther-Yuriy W R60.0 LOCALIZED EDEMA 03/31/2018 Daniel, Esther-Yuriy W 782.3 EDEMA 03/31/2018 Daniel, Esther-Yuriy W R60.0 LOCALIZED EDEMA 04/06/2018 Daniel, EstherMerlin W 724.2 LUMBAGO 04/06/2018 Daniel, Esther-Yuriy W 848.8 OTHER SPECIFIED SITES OF SPRAINS AND STRAINS 04/06/2018 Fredy, Clairu W M54.5 LOW BACK PAIN 04/06/2018 Fredy, Mack W S39.012A STRAIN OF MUSCLE, FASCIA AND TENDON OF LOWER BACK, INITIAL ENCOUNTER 04/06/2018 Fredy, Mack W 724.2 LUMBAGO 04/06/2018 Fredy, Esther-Yuriy W 724.4 THORACIC OR LUMBOSACRAL NEURITIS OR RADICULITIS, UNSPECIFIED 04/06/2018 Fredy, Mack W 848.8 OTHER SPECIFIED SITES OF SPRAINS AND STRAINS 04/06/2018 Daniel, Mack W M54.16 RADICULOPATHY, LUMBAR REGION 04/06/2018 Daniel, Mack W M54.5 LOW BACK PAIN 04/06/2018 Daniel, Mack W S39.012A STRAIN OF MUSCLE, FASCIA AND TENDON OF LOWER BACK, INITIAL ENCOUNTER 04/06/2018 Fredy, Mack W 724.2 LUMBAGO 04/06/2018 Daniel, Mack W 724.4 THORACIC OR LUMBOSACRAL NEURITIS OR RADICULITIS, UNSPECIFIED 04/06/2018 Daniel, Mack W 848.8 OTHER SPECIFIED SITES OF SPRAINS AND STRAINS 04/06/2018 Daniel, Mack W M54.16 RADICULOPATHY, LUMBAR REGION 04/06/2018 Daniel, Mack W M54.5 LOW BACK PAIN 04/06/2018 Daniel, Mack W S39.012A STRAIN OF MUSCLE, FASCIA AND TENDON OF LOWER BACK, INITIAL ENCOUNTER 04/14/2018 W 591 HYDRONEPHROSIS 04/14/2018 W N13.30 UNSPECIFIED HYDRONEPHROSIS 04/14/2018 W 591 HYDRONEPHROSIS 04/14/2018 W N13.30 UNSPECIFIED HYDRONEPHROSIS 10/18/2018 Uday Streeter W 372.00 ACUTE CONJUNCTIVITIS, UNSPECIFIED 10/18/2018 Uday Streeter W H10.33 UNSPECIFIED ACUTE CONJUNCTIVITIS, BILATERAL Procedures There is no data. Results Test Result Range Complete blood count (CBC) with automated white blood cell (WBC) differential - 02/22/16 01:36 Blood leukocytes automated count (number/volume) 9.5 10*3/uL 4.3-11.0 Blood erythrocytes automated count (number/volume) 3.90 10*6/uL 4.35-5.85 Venous blood hemoglobin measurement (mass/volume) 13.2 g/dL 11.5-16.0 Blood hematocrit (volume fraction) 40 % 35-52 Automated erythrocyte mean corpuscular volume 102 [foz_us] 80-99 Automated erythrocyte mean corpuscular hemoglobin (mass per erythrocyte) 34 pg 25-34 Automated erythrocyte mean corpuscular hemoglobin concentration measurement (mass/volume) 33 g/dL 32-36 Automated erythrocyte distribution width ratio 12.6 % 10.0- 14.5 Automated blood platelet count (count/volume) 274 10*3/uL 130-400 Automated blood platelet mean volume measurement 9.7 [foz_us] 7.4-10.4 Automated blood neutrophils/100 leukocytes 63 % 42-75 Automated blood lymphocytes/100 leukocytes 24 % 12-44 Blood monocytes/100 leukocytes 10 % 0-12 Automated blood eosinophils/100 leukocytes 2 % 0-10 Automated blood basophils/100 leukocytes 0 % 0-10 Blood neutrophils automated count (number/volume) 6.0 10*3 1.8-7.8 Blood lymphocytes automated count (number/volume) 2.3 10*3 1.0-4.0 Blood monocytes automated count (number/volume) 1.0 10*3 0.0- 1.0 Automated eosinophil count 0.2 10*3/uL 0.0-0.3 Automated blood basophil count (count/volume) 0.0 10*3/uL 0.0-0.1 PT panel in platelet poor plasma by coagulation assay - 02/22/16 01:36 Prothrombin time (PT) in platelet poor plasma by coagulation assay 12.6 s 12.2-14.7 INR in platelet poor plasma or blood by coagulation assay 1.0 0.8-1.4 Activated partial thromboplastin time (aPTT) in platelet poor plasma bycoagulation assay - 02/22/16 01:36 Activated partial thromboplastin time (aPTT) in platelet poor plasma bycoagulation assay 35 s 24-35 Comprehensive metabolic panel - 02/22/16 01:36 Serum or plasma sodium measurement (moles/volume) 141 mmol/L 135-145 Serum or plasma potassium measurement (moles/volume) 3.6 mmol/L 3.6-5.0 Serum or plasma chloride measurement (moles/volume) 107 mmol/L 98-107 Carbon dioxide 20 mmol/L 21-32 Serum or plasma anion gap determination (moles/volume) 14 mmol/L 5-14 Serum or plasma urea nitrogen measurement (mass/volume) 15 mg/dL 7-18 Serum or plasma creatinine measurement (mass/volume) 0.84 mg/dL 0.60-1.30 Serum or plasma urea nitrogen/creatinine mass ratio 18 NRG Serum or plasma creatinine measurement with calculation of estimated glomerular filtration rate > NRG Serum or plasma glucose measurement (mass/volume) 120 mg/dL 70-105 Serum or plasma calcium measurement (mass/volume) 9.2 mg/dL 8.5-10.1 Serum or plasma total bilirubin measurement (mass/volume) 0.4 mg/dL 0.1-1.0 Serum or plasma alkaline phosphatase measurement (enzymatic activity/volume) 85 U/L 40-136 Serum or plasma aspartate aminotransferase measurement (enzymatic activity/volume) 18 U/L 5-34 Serum or plasma alanine aminotransferase measurement (enzymatic activity/volume) 17 U/L 0-55 Serum or plasma protein measurement (mass/volume) 6.4 g/dL 6.4-8.2 Serum or plasma albumin measurement (mass/volume) 4.0 g/dL 3.2-4.5 Magnesium - 02/22/16 01:36 Magnesium 2.2 mg/dL 1.8-2.4 Serum or plasma creatine kinase measurement (enzymatic activity/volume) - 02/22/16 01:36 Serum or plasma creatine kinase measurement (enzymatic activity/volume) 98 U/L 29-168 Serum or plasma creatine kinase MB measurement (enzymatic activity/volume) - 02/22/16 01:36 Serum or plasma creatine kinase MB measurement (enzymatic activity/volume) 2.6 ng/mL <6.6 Serum or plasma troponin i.cardiac measurement (mass/volume) - 02/22/16 01:36 Serum or plasma troponin i.cardiac measurement (mass/volume) < ng/mL <0.30 Serum or plasma amylase measurement (enzymatic activity/volume) - 02/22/16 01:36 Serum or plasma amylase measurement (enzymatic activity/volume) 35 U/L 25-125 Lipase - 02/22/16 01:36 Lipase 21 U/L 8-78 Serum or plasma lithium measurement (moles/volume) - 02/22/16 01:36 BNP level 95.2 pg/mL <100.0 Complete blood count (CBC) with automated white blood cell (WBC) differential - 02/26/16 12:18 Blood leukocytes automated count (number/volume) 8.1 10*3/uL 4.3-11.0 Blood erythrocytes automated count (number/volume) 3.97 10*6/uL 4.35-5.85 Venous blood hemoglobin measurement (mass/volume) 13.6 g/dL 11.5-16.0 Blood hematocrit (volume fraction) 41 % 35-52 Automated erythrocyte mean corpuscular volume 102 [foz_us] 80-99 Automated erythrocyte mean corpuscular hemoglobin (mass per erythrocyte) 34 pg 25-34 Automated erythrocyte mean corpuscular hemoglobin concentration measurement (mass/volume) 34 g/dL 32-36 Automated erythrocyte distribution width ratio 12.7 % 10.0- 14.5 Automated blood platelet count (count/volume) 299 10*3/uL 130-400 Automated blood platelet mean volume measurement 9.6 [foz_us] 7.4-10.4 Automated blood neutrophils/100 leukocytes 70 % 42-75 Automated blood lymphocytes/100 leukocytes 21 % 12-44 Blood monocytes/100 leukocytes 7 % 0-12 Automated blood eosinophils/100 leukocytes 1 % 0-10 Automated blood basophils/100 leukocytes 0 % 0-10 Blood neutrophils automated count (number/volume) 5.7 10*3 1.8-7.8 Blood lymphocytes automated count (number/volume) 1.7 10*3 1.0-4.0 Blood monocytes automated count (number/volume) 0.6 10*3 0.0- 1.0 Automated eosinophil count 0.1 10*3/uL 0.0-0.3 Automated blood basophil count (count/volume) 0.0 10*3/uL 0.0-0.1 Comprehensive metabolic panel - 02/26/16 12:18 Serum or plasma sodium measurement (moles/volume) 140 mmol/L 135-145 Serum or plasma potassium measurement (moles/volume) 3.9 mmol/L 3.6-5.0 Serum or plasma chloride measurement (moles/volume) 108 mmol/L 98-107 Carbon dioxide 23 mmol/L 21-32 Serum or plasma anion gap determination (moles/volume) 9 mmol/L 5-14 Serum or plasma urea nitrogen measurement (mass/volume) 9 mg/dL 7-18 Serum or plasma creatinine measurement (mass/volume) 0.71 mg/dL 0.60-1.30 Serum or plasma urea nitrogen/creatinine mass ratio 13 NRG Serum or plasma creatinine measurement with calculation of estimated glomerular filtration rate > NRG Serum or plasma glucose measurement (mass/volume) 93 mg/dL 70-105 Serum or plasma calcium measurement (mass/volume) 9.3 mg/dL 8.5-10.1 Serum or plasma total bilirubin measurement (mass/volume) 0.8 mg/dL 0.1-1.0 Serum or plasma alkaline phosphatase measurement (enzymatic activity/volume) 87 U/L 40-136 Serum or plasma aspartate aminotransferase measurement (enzymatic activity/volume) 20 U/L 5-34 Serum or plasma alanine aminotransferase measurement (enzymatic activity/volume) 17 U/L 0-55 Serum or plasma protein measurement (mass/volume) 6.6 g/dL 6.4-8.2 Serum or plasma albumin measurement (mass/volume) 4.1 g/dL 3.2-4.5 Serum or plasma creatine kinase MB measurement (enzymatic activity/volume) - 02/26/16 12:18 Serum or plasma creatine kinase MB measurement (enzymatic activity/volume) 5.3 ng/mL <6.6 Serum or plasma troponin i.cardiac measurement (mass/volume) - 02/26/16 12:18 Serum or plasma troponin i.cardiac measurement (mass/volume) < ng/mL <0.30 THYROID STIMULATING HORMONE - 02/26/16 12:18 THYROID STIMULATING HORMONE 1.89 u[iU]/mL 0.35-4.94 Protime - 08/18/16 17:05 INR 1.0 1.0-4.0 Protime 11.2 Sec 9.9-12.8 Cardiac Panel - 11/25/16 16:35 CK 91 U/L 26-174 CK-MB 2.3 ng/ml 0.0-9.2 Myoglobin 40.5 ng/ml 1.6-106.0 Troponin <0.020 ng/mL 0.0-0.4 Comprehensive Metabolic Panel - 12/05/17 00:10 Albumin 4.1 g/dL 3.6-5.1 ALP 86 U/L 35-130 ALT 20 U/L 6-45 Anion Gap 19 6-14 AST 21 U/L 2-40 BUN 16 mg/dL 5-25 Calcium 9.4 mg/dL 8.3-10.4 Chloride 104 mmol/L 95-114 CO2 24 mEq/L 22-33 Creat 0.86 mg/dL 0.50-1.50 eGFR 63 mL/min/1.73m2 >59 Globulin 3.0 g/dL 2.3-3.5 Glucose 108 mg/dL 70-110 Osmo 297 280-295 Potassium 3.9 mmol/L 3.5-5.3 Sodium 143 mmol/L 134-148 TBil 0.6 mg/dL 0.2-1.2 TP 7.1 g/dL 6.0-8.3 Urinalysis - 12/05/17 00:22 Icotest N/A Negative Urine Volume Urine Volume Sufficient (10mL) Urine Yeast No Yeast present Urine-Appearance Clear Clear Urine-Bacteria Negative Urine-Bilirubin Negative Negative Urine-Blood Trace-lysed Negative Urine-Color Yellow Colorless-Lt. Yellow Urine-Epithelial Cells 0-5/HPF Urine-Glucose Negative Negative Urine-Ketones Negative Negative Urine-Leukocytes Negative Negative Urine-Nitrite Negative Negative Urine-Other Urine Saved if Culture Needed (48hrs from time of collection) Urine-pH 6.0 5-8.5 Urine-Protein Negative Negative Urine-RBC Rare/HPF Urine-Specific [place] 1.010 1.000-1.030 Urine-WBC Nothing Seen on Microscopic Urobilinogen 0.2 0.2-1.0 Urinalysis - 03/20/18 02:30 Icotest N/A Negative Urine Volume Urine Volume Sufficient (10mL) Urine-Appearance Clear Clear Urine-Bacteria Negative Urine-Bilirubin Negative Negative Urine-Blood Negative Negative Urine-Color Lt. Yellow Colorless-Lt. Yellow Urine-Epithelial Cells 0-5/HPF Urine-Glucose Negative Negative Urine-Ketones Negative Negative Urine-Leukocytes 1+ Negative Urine-Nitrite Negative Negative Urine-Other Urine Saved if Culture Needed (48hrs from time of collection) Urine-pH 6.0 5-8.5 Urine-Protein Negative Negative Urine-RBC Rare/HPF Urine-Specific [place] 1.010 1.000-1.030 Urine-WBC 1-3/HPF Urobilinogen 0.2 0.2-1.0 Complete blood count (CBC) with automated white blood cell (WBC) differential - 11/04/18 20:37 Blood leukocytes automated count (number/volume) 8.7 10*3/uL 4.3-11.0 Blood erythrocytes automated count (number/volume) 3.32 10*6/uL 4.35-5.85 Venous blood hemoglobin measurement (mass/volume) 11.2 g/dL 11.5-16.0 Blood hematocrit (volume fraction) 35 % 35-52 Automated erythrocyte mean corpuscular volume 105 [foz_us] 80-99 Automated erythrocyte mean corpuscular hemoglobin (mass per erythrocyte) 34 pg 25-34 Automated erythrocyte mean corpuscular hemoglobin concentration measurement (mass/volume) 32 g/dL 32-36 Automated erythrocyte distribution width ratio 13.1 % 10.0- 14.5 Automated blood platelet count (count/volume) 275 10*3/uL 130-400 Automated blood platelet mean volume measurement 10.0 [foz_us] 7.4-10.4 Automated blood neutrophils/100 leukocytes 49 % 42-75 Automated blood lymphocytes/100 leukocytes 40 % 12-44 Blood monocytes/100 leukocytes 9 % 0-12 Automated blood eosinophils/100 leukocytes 2 % 0-10 Automated blood basophils/100 leukocytes 0 % 0-10 Blood neutrophils automated count (number/volume) 4.2 10*3 1.8-7.8 Blood lymphocytes automated count (number/volume) 3.4 10*3 1.0-4.0 Blood monocytes automated count (number/volume) 0.8 10*3 0.0- 1.0 Automated eosinophil count 0.2 10*3/uL 0.0-0.3 Automated blood basophil count (count/volume) 0.0 10*3/uL 0.0-0.1 PT panel in platelet poor plasma by coagulation assay - 11/04/18 20:37 Prothrombin time (PT) in platelet poor plasma by coagulation assay 14.4 s 12.2-14.7 INR in platelet poor plasma or blood by coagulation assay 1.1 0.8-1.4 Activated partial thromboplastin time (aPTT) in platelet poor plasma bycoagulation assay - 11/04/18 20:37 Activated partial thromboplastin time (aPTT) in platelet poor plasma bycoagulation assay 33 s 24-35 Comprehensive metabolic panel - 11/04/18 20:37 Serum or plasma sodium measurement (moles/volume) 139 mmol/L 135-145 Serum or plasma potassium measurement (moles/volume) 4.5 mmol/L 3.6-5.0 Serum or plasma chloride measurement (moles/volume) 106 mmol/L 98-107 Carbon dioxide 20 mmol/L 21-32 Serum or plasma anion gap determination (moles/volume) 13 mmol/L 5-14 Serum or plasma urea nitrogen measurement (mass/volume) 11 mg/dL 7-18 Serum or plasma creatinine measurement (mass/volume) 1.05 mg/dL 0.60-1.30 Serum or plasma urea nitrogen/creatinine mass ratio 10 NRG Serum or plasma creatinine measurement with calculation of estimated glomerular filtration rate 50 NRG Serum or plasma glucose measurement (mass/volume) 167 mg/dL 70-105 Serum or plasma calcium measurement (mass/volume) 8.9 mg/dL 8.5-10.1 Serum or plasma total bilirubin measurement (mass/volume) 0.7 mg/dL 0.1-1.0 Serum or plasma alkaline phosphatase measurement (enzymatic activity/volume) 78 U/L 40-136 Serum or plasma aspartate aminotransferase measurement (enzymatic activity/volume) 15 U/L 5-34 Serum or plasma alanine aminotransferase measurement (enzymatic activity/volume) 16 U/L 0-55 Serum or plasma protein measurement (mass/volume) 6.0 g/dL 6.4-8.2 Serum or plasma albumin measurement (mass/volume) 3.7 g/dL 3.2-4.5 CALCIUM CORRECTED 9.1 mg/dL 8.5-10.1 Magnesium - 11/04/18 20:37 Magnesium 2.3 mg/dL 1.8-2.4 Serum or plasma troponin i.cardiac measurement (mass/volume) - 11/04/18 20:37 Serum or plasma troponin i.cardiac measurement (mass/volume) < ng/mL <0.028 Myoglobin, serum - 11/04/18 20:37 Myoglobin, serum 40.4 ng/mL 10.0-92.0 Encounters ACCT No. Visit Date/Time Discharge Status Pt. Type Provider Facility Loc./Unit Complaint [id number] 10/18/2018 08:03:00 10/18/2018 08:25:[address] [facility] ER [id number] 06/03/2018 10:10:00 06/03/2018 23:59:00 DIS Outpatient Mack Daniel [id number] 04/06/2018 07:48:00 04/06/2018 23:59:00 DIS Outpatient Mack Daniel [id number] 03/31/2018 12:38:00 03/31/2018 23:59:00 DIS Outpatient Mack Daniel [id number] 03/20/2018 02:09:00 03/20/2018 03:47:00 DIS Outpatient PRESTON NOBLE [facility] ER [id number] 12/04/2017 23:18:00 12/05/2017 01:07:00 DIS Outpatient Jay Gonzales [facility] ER [id number] 06/11/2017 09:35:00 06/11/2017 23:59:00 DIS Outpatient Mack Daniel [id number] 06/11/2017 09:03:00 06/11/2017 09:35:00 DIS Outpatient StreeterUday [id number] 04/03/2017 13:19:00 04/03/2017 23:59:00 DIS Outpatient Mack Daniel [id number] 11/25/2016 15:57:00 11/25/2016 18:54:00 DIS Outpatient Kameron [facility] ER [id number] 08/18/2016 16:01:00 08/18/2016 18:15:00 DIS Outpatient PRESTON NOBLE [id number] 04/14/2018 10:50:00 Document Registration [id number] 11/25/2016 16:38:06 Document Registration [id number] 05/20/2017 17:17:30 05/20/2017 23:59:59 CLS Outpatient Sukhdev Macrh Ken [id number] 11/04/2018 20:35:00 11/04/2018 21:42:00 DIS Emergency SASHA VERMA MD [facility] ER STEMI [id number] 05/08/2016 11:26:00 05/20/2016 13:27:00 DIS Outpatient SG ALMARAZ MD [facility] CR AMI;STENT [id number] 02/26/2016 11:33:00 02/26/2016 18:00:00 DIS Inpatient KAROL KIRK DO [facility] ICU CHEST PAIN [id number] 02/22/2016 01:02:00 02/22/2016 02:33:00 DIS Emergency CANDY WAKLER DO [facility] ER LEFT ARM BACK PAIN,CHEST DISCOMFORT [id number] 01/31/2016 10:26:00 01/31/2016 23:59:59 CLS Outpatient KAROL KIRK DO [facility] RAD CAROTID ARTERY STENOSIS [id number] 04/05/2014 08:06:00 04/05/2014 23:59:59 CLS Outpatient REAGAN DO KAROL S [facility] CARD CP,HTN [id number] 03/22/2014 16:17:00 03/22/2014 17:50:00 DIS Emergency YARELIS FLANAGAN MD [facility] ER DIZZINESS [id number] 11/02/2013 12:35:00 11/02/2013 23:59:59 CLS Outpatient HINANDER DO KAROL S [facility] RAD FREQUENT [place] LEG WEAKNESS PARASTAS [id number] 10/19/2013 07:43:00 10/19/2013 08:20:00 DIS Emergency AARNOCarey LEZAMA CANDY K [facility] ER BEE STING [id number] 10/06/2013 08:03:00 10/06/2013 23:59:59 CLS Outpatient HINAKATERIN SMITH DOQUELINE S [facility] RAD RT LEG WEAKNESS, LBP [id number] 09/27/2013 10:15:00 09/27/2013 23:59:59 CLS Outpatient DORON CHRISTINE [facility] RAD BILAT CAROTID BRUIT [id number] 05/06/2013 10:46:00 05/06/2013 23:59:59 CLS Outpatient KATERIN KIRK DOQUELINE S [facility] CARD CARDIAC MURMUR [id number] 04/12/2013 10:04:00 04/12/2013 23:59:59 CLS Outpatient HINABELINDAPAVAN DO KAROL S [facility] RAD VISION CHANGE,TIA [id number] 03/10/2013 08:28:00 03/10/2013 11:50:00 DIS [facility] [id number] 03/04/2013 07:22:00 03/04/2013 23:59:59 CLS Outpatient MIRELLA ORTEGA MD [facility] PREOP SCREENING [id number] 12/20/2012 17:28:00 12/20/2012 19:10:00 DIS Emergency BRUEGGEMANN MD, SILVANO T [facility] ER HIGH BLOOD PRESSURE [id number] 12/12/2012 23:26:00 12/13/2012 00:45:00 DIS Emergency SILVANO PEREZ MD [facility] ER HIGH BLOOD PRESSURE [id number] 07/29/2012 12:47:00 Document Registration [id number] 09:57:00 Document Registration [id number] 07/24/2012 12:53:00 Document Registration [id number] 05/20/2012 09:39:00 Document Registration [id number] 09/20/2010 10:37:00 Document Registration [id number] 09/18/2010 20:51:00 Document Registration [id number] 09/16/2010 15:41:00 Document Registration
== END 2018-11-04 21:42 | disposition expired ==
LOC: EDUNIT# 20:34 → ER 20:35
DX: I46.9 Cardiac arrest, cause unspecified (principal); I21.9 Acute myocardial infarction, unspecified; E78.00 Pure hypercholesterolemia, unspecified; I10 Essential (primary) hypertension; G40.909 Epilepsy, unspecified, not intractable, without status epilepticus; F41.9 Anxiety disorder, unspecified; Z78.0 Asymptomatic menopausal state; Z82.49 Family history of ischemic heart disease and other diseases of the circulatory system; Z86.73 Personal history of transient ischemic attack (TIA), and cerebral infarction without residual deficits; Z90.710 Acquired absence of both cervix and uterus; Z98.890 Other specified postprocedural states
CPT/HCPCS: 36415; 80053; 83735; 83874; 84484; 85025; 85610; 85730; 93005; 93041; 96374